=== PATIENT | female | born 1995 | race Caucasian/White ===

== ENCOUNTER 2021-01-03 00:58 | Inpatient (IN) ==
[2021-01-03] MEDS ORDERED: MEPERIDINE 50 MG/1 ML VIAL IV PRN (01:29)
[2021-01-03] MEDS ORDERED: ONDANSETRON 4 MG/2 ML VIAL IV PRN (01:29)
[2021-01-03 02:04] LABS: Basophils % 0.4 % (0.0-0.8); Eosinophils # 0.1 10*3/uL (0.0-0.87); Eosinophils % 0.6 % (0.00-10.9); Hematocrit 30.8 VOL% (35.7-47.0); Hemoglobin 9.8 GM/DL (12.0-16.0); Immature Granulocytes % 1.2 %; Immature Granulocytes Absolute 0.13 #; Lymphocytes # 2.2 10*3/uL (1.4-4.0); Lymphocytes % 20.6 % (21.3-54.2); Mean Corpuscular HGB Conc 31.8 GM/DL (32-36); Mean Corpuscular Volume 80.2 FL (87-102); Mean Platelet Volume 9.9 FL (9.6-12.0); Neutrophils % 69.2 % (38.7-73.9); Platelet Count 324 T/CUMM (130-400); Red Blood Count 3.84 MC/CUMM (3.8-5.5); Red Cell Distribution Width 14.9 % (9.3-17.3); White Blood Count 10.5 T/CUMM (4-12)
[2021-01-03 02:21] LABS: Alanine Aminotransferase < 6 U/L (13-56); Albumin 2.7 G/DL (3.4-5.0); Alkaline Phosphatase 253 U/L (45-117); Aspartate Amino Transferase 14 U/L (0-37); Blood Urea Nitrogen 8 MG/DL (7-18); Calcium 8.7 MG/DL (8.5-10.1); Carbon Dioxide 21 MMOL/L (21-32); Estimated Glom Filtration Rate 129 ML/MIN; Glucose 95 MG/DL (74-106); Osmolality,Calculated 265.2 MOS/KG (273-304); Potassium 3.7 MMOL/L (3.5-5.1); Sodium 134 MMOL/L (136-145); Total Protein 6.8 G/DL (6.4-8.2)
[2021-01-03] MEDS: LACTATED RINGERS 1,000 ML IV PRN ×2 (02:32→05:03)
[2021-01-03] MEDS: OXYTOCIN/LR 20 UNIT/1,000 ML BAG IV SCH ×2 (03:17→15:14)
[2021-01-03] MEDS ORDERED: FAMOTIDINE 20 MG/2 ML VIAL IV ONE (03:24)
[2021-01-03] MEDS ORDERED: PROMETHAZINE 25 MG/1 ML VIAL IM ONE (03:24)
[2021-01-03] MEDS ORDERED: hydrOXYzine HCL 25 MG/1 ML VIAL IM PRN (03:24)
[2021-01-03] MEDS ORDERED: NALOXONE 0.4 MG/ML VIAL IV PRN (03:24)
[2021-01-03] MEDS ORDERED: ONDANSETRON 4 MG/2 ML VIAL IV ONE (03:24)
[2021-01-03] MEDS ORDERED: ePHEDrine 50 MG/ML VIAL IV PRN (03:24)
[2021-01-03] MEDS ORDERED: diphenhydrAMINE 50 MG/1 ML VIAL IV PRN ×2 (03:24)
[2021-01-03] MEDS ORDERED: CITRIC ACID/SODIUM CITRATE 30 ML UDCUP PO ONE (03:24)
[2021-01-03 03:53] LABS: Hypochromasia 1+; Microcytosis 1+; Platelet Estimate Adequate
[2021-01-03] MEDS: fentaNYL 2 MCG/ROPIV 0.2% EPID 100 ML EPIDURAL SCH ×2 (04:15→11:44)
[2021-01-03 05:43] LABS: Bilirubin,Urine Negative (Negative); Blood, Urine Negative (Negative); Glucose,Urine (UA) Negative (Negative); Ketones,Urine 5 mg/dL (Negative); Mucus,Urine Occasional /LPF (Occasional); Nitrite,Urine Negative (Negative); Protein,Urine Negative; Squamous Epithelial Cell,Urine Occasional /HPF (0-10); Urine Appearance CLEAR (Clear); Urine Color Yellow (Yellow); Urine Specific Gravity 1.009 (1.001-1.035); Urine Urobilinogen < 2.0 EU/DL (0.2-1.0)
[2021-01-03] MEDS ORDERED: miSOPROStoL 200 MCG TABLET ONE (09:40)
[2021-01-03] MEDS ORDERED: METHYLERGONOVINE 0.2 MG/1 ML AMP ONE (09:40)
[2021-01-03] MEDS ORDERED: CARBOPROST TROMETHAMINE 250 MCG/ML AMP IM ONE (09:41)
[2021-01-03] MEDS ORDERED: LIDOCAINE 1% 50 ML VIAL ONE (09:42)
[2021-01-03 13:12] LABS: Cord Venous Blood HCO3 20.4 MMOL/L; Cord Venous Blood PCO2 40.9 MMHG; Cord Venous Blood PO2 35.3
[2021-01-03] MEDS ORDERED: RHO(D) IMMUNE GLOBULIN 300 MCG SYRINGE IM ONE (15:22)
[2021-01-03] MEDS ORDERED: oxyCODONE/ACETAMINOPHEN 5-325 MG TABLET PO PRN (15:22)
[2021-01-03] MEDS ORDERED: BENZOCAINE 20%/MENTHOL 0.5% SPRAY 56 GM CAN TOP PRN (15:22)
[2021-01-03] MEDS ORDERED: HYDROCORTISONE 2.5% RECTAL CREAM 30 GM TUBE TOP PRN (15:22)
[2021-01-03] MEDS ORDERED: WITCH HAZEL PADS 100/JAR TOP PRN (15:22)
[2021-01-03] MEDS ORDERED: ACETAMINOPHEN 325 MG TABLET PO PRN (15:22)
[2021-01-03] MEDS ORDERED: BISACODYL 10 MG SUPP RECTAL PRN (15:22)
[2021-01-03] MEDS ORDERED: MEASLES/MUMPS/RUBELLA VACCINE 0.5 ML VIAL SUBCUT ONE (15:22)
[2021-01-03] MEDS ORDERED: OXYTOCIN/LR 20 UNIT/1,000 ML BAG IV ONE (15:22)
[2021-01-03] MEDS ORDERED: LANOLIN 50% CREAM 0.3 OZ TUBE TOP PRN (15:22)
[2021-01-03] MEDS ORDERED: DIPH/TET/ACEL PERT BOOSTER VACCINE 0.5 ML VIAL IM ONE (15:22)
[2021-01-03] MEDS: IBUPROFEN 800 MG TABLET PO PRN (15:55)
[2021-01-03] MEDS: oxyCODONE/ACETAMINOPHEN 5-325 MG TABLET PO PRN (15:57)
[2021-01-03] MEDS: DOCUSATE SODIUM 100 MG CAPSULE PO SCH (21:59)
[2021-01-04] MEDS: IBUPROFEN 800 MG TABLET PO PRN ×3 (03:40→20:22)
[2021-01-04] MEDS: oxyCODONE/ACETAMINOPHEN 5-325 MG TABLET PO PRN ×2 (03:41→22:47)
[2021-01-04 05:20] LABS: Basophils % 0.3 % (0.0-0.8); Eosinophils # 0.1 10*3/uL (0.0-0.87); Eosinophils % 0.4 % (0.00-10.9); Hematocrit 23.1 VOL% (35.7-47.0); Immature Granulocytes % 1.2 %; Immature Granulocytes Absolute 0.18 #; Lymphocytes # 2.3 10*3/uL (1.4-4.0); Lymphocytes % 15.5 % (21.3-54.2); Mean Corpuscular HGB Conc 31.6 GM/DL (32-36); Mean Corpuscular Volume 81.6 FL (87-102); Mean Platelet Volume 10.7 FL (9.6-12.0); Neutrophils % 76.6 % (38.7-73.9)
[2021-01-04 05:21] LABS: Hemoglobin 7.3 GM/DL (12.0-16.0); Platelet Count 244 T/CUMM (130-400); Red Blood Count 2.83 MC/CUMM (3.8-5.5)
[2021-01-04] MEDS ORDERED: SODIUM CHLORIDE 0.9% 1,000 ML IV PRN (08:40)
[2021-01-04] MEDS: DOCUSATE SODIUM 100 MG CAPSULE PO SCH ×2 (09:33→20:23)
[2021-01-04] MEDS: FERROUS SULFATE 325 MG TABLET PO SCH ×3 (09:34→20:23)
[2021-01-04 15:37] LABS: Hematocrit 29.6 VOL% (35.7-47.0); Hemoglobin 9.6 GM/DL (12.0-16.0)
[2021-01-05 05:51] LABS: Basophils % 0.2 % (0.0-0.8); Eosinophils # 0.1 10*3/uL (0.0-0.87); Eosinophils % 0.4 % (0.00-10.9); Hematocrit 28.1 VOL% (35.7-47.0); Hemoglobin 8.8 GM/DL (12.0-16.0); Immature Granulocytes Absolute 0.33 #; Lymphocytes # 2.4 10*3/uL (1.4-4.0); Lymphocytes % 14.4 % (21.3-54.2); Mean Corpuscular HGB Conc 31.3 GM/DL (32-36); Mean Corpuscular Volume 84.1 FL (87-102); Mean Platelet Volume 9.8 FL (9.6-12.0); Monocytes % 7.5 % (1.7-12.7); Neutrophils % 75.5 % (38.7-73.9); Platelet Count 241 T/CUMM (130-400); Red Blood Count 3.34 MC/CUMM (3.8-5.5); Red Cell Distribution Width 15.3 % (9.3-17.3); White Blood Count 16.8 T/CUMM (4-12)
[2021-01-05 08:23] VITALS: BP 99/59
[2021-01-05] MEDS: DOCUSATE SODIUM 100 MG CAPSULE PO SCH (08:53)
[2021-01-05] MEDS: FERROUS SULFATE 325 MG TABLET PO SCH (08:53)
[2021-01-05] MEDS: IBUPROFEN 800 MG TABLET PO PRN (08:54)
== END 2021-01-05 11:35 | disposition home or self-care (01) | DRG 807 ==
LOC: N.LD 00:58 → N.OB 15:27
PROVIDERS: ADMIT Obstetrics & Gynecology; ATTEND Obstetrics & Gynecology

== ENCOUNTER 2022-01-30 14:47 | Inpatient (IN) ==
[2022-01-30] MEDS ORDERED: CARBOPROST TROMETHAMINE 250 MCG/ML AMP IM PRN (15:36)
[2022-01-30] MEDS ORDERED: PROMETHAZINE 25 MG/1 ML VIAL IM ONE (15:36)
[2022-01-30] MEDS ORDERED: NALOXONE 0.4 MG/ML VIAL IV PRN (15:36)
[2022-01-30] MEDS ORDERED: ONDANSETRON 4 MG/2 ML VIAL IV ONE (15:36)
[2022-01-30] MEDS ORDERED: ePHEDrine 50 MG/ML VIAL IV PRN (15:36)
[2022-01-30] MEDS ORDERED: METHYLERGONOVINE 0.2 MG/1 ML AMP IM PRN (15:36)
[2022-01-30] MEDS ORDERED: miSOPROStoL 200 MCG TABLET RECTAL PRN (15:36)
[2022-01-30] MEDS ORDERED: OXYTOCIN/LR 20 UNIT/1,000 ML BAG IV ONE ×2 (15:36→21:49)
[2022-01-30] MEDS ORDERED: diphenhydrAMINE 50 MG/1 ML VIAL IV PRN ×2 (15:36)
[2022-01-30] MEDS ORDERED: TRANEXAMIC ACID 1,000 MG in SODIUM CHLORIDE 0.9% 100 ML IV PRN (15:36)
[2022-01-30] MEDS ORDERED: ONDANSETRON 4 MG/2 ML VIAL IV PRN (15:36)
[2022-01-30] MEDS ORDERED: hydrOXYzine HCL 25 MG/1 ML VIAL IM PRN (15:36)
[2022-01-30] MEDS ORDERED: MEPERIDINE 50 MG/1 ML VIAL IV PRN (15:36)
[2022-01-30] MEDS ORDERED: CITRIC ACID/SODIUM CITRATE 30 ML UDCUP PO ONE (15:36)
[2022-01-30] MEDS ORDERED: LACTATED RINGERS 1,000 ML IV ONE (15:36)
[2022-01-30] MEDS ORDERED: FAMOTIDINE 20 MG TABLET PO ONE (15:36)
[2022-01-30 15:49] LABS: Basophils # 0.1 10*3/uL (0.0-0.2); Basophils % 0.4 % (0.0-0.8); Eosinophils # 0.1 10*3/uL (0.0-0.87); Eosinophils % 0.4 % (0.00-10.9); Hematocrit 30.6 VOL% (35.7-47.0); Hemoglobin 9.1 GM/DL (12.0-16.0); Immature Granulocytes % 0.5 %; Immature Granulocytes Absolute 0.06 #; Lymphocytes # 4.7 10*3/uL (1.4-4.0); Lymphocytes % 41.6 % (21.3-54.2); Mean Corpuscular HGB Conc 29.7 GM/DL (32-36); Mean Corpuscular Volume 74.5 FL (87-102); Mean Platelet Volume 9.6 FL (9.6-12.0); Monocytes # 0.7 10*3/uL (0.11-0.8); Monocytes % 6.2 % (1.7-12.7); Neutrophils % 50.9 % (38.7-73.9); Platelet Count 316 T/CUMM (130-400); Red Blood Count 4.11 MC/CUMM (3.8-5.5); Red Cell Distribution Width 15.5 % (9.3-17.3); White Blood Count 11.2 T/CUMM (4-12)
[2022-01-30] MEDS: LACTATED RINGERS 1,000 ML IV SCH ×2 (15:57→16:11)
[2022-01-30] MEDS ORDERED: fentaNYL 2 MCG/ROPIV 0.2% EPID 100 ML EPIDURAL SCH (16:00)
[2022-01-30] MEDS ORDERED: OXYTOCIN/LR 20 UNIT/1,000 ML BAG IV SCH (16:00)
[2022-01-30] MEDS ORDERED: FAMOTIDINE 20 MG/2 ML VIAL IV ONE ×2 (16:02→16:16)
[2022-01-30 16:11] LABS: Albumin 2.9 G/DL (3.4-5.0); Bilirubin,Total 1.1 MG/DL (0.20-1.00); Potassium 3.9 MMOL/L (3.5-5.1); Total Protein 7.4 G/DL (6.4-8.2)
[2022-01-30] MEDS ORDERED: miSOPROStoL 200 MCG TABLET ONE (17:02)
[2022-01-30] MEDS ORDERED: CARBOPROST TROMETHAMINE 250 MCG/ML AMP IM ONE (17:02)
[2022-01-30] MEDS ORDERED: METHYLERGONOVINE 0.2 MG/1 ML AMP ONE (17:02)
[2022-01-30 18:00] LABS: Cord Arterial Blood HCO3 23.4 MMOL/L
[2022-01-30 18:06] LABS: Cord Venous Blood HCO3 23.4 MMOL/L; Cord Venous Blood PCO2 44.2 MMHG; Cord Venous Blood PO2 26.1
[2022-01-30] MEDS ORDERED: RHO(D) IMMUNE GLOBULIN 300 MCG SYRINGE IM ONE (21:49)
[2022-01-30] MEDS ORDERED: MEASLES/MUMPS/RUBELLA VACCINE 0.5 ML VIAL SUBCUT ONE (21:49)
[2022-01-30] MEDS ORDERED: BISACODYL 10 MG SUPP RECTAL PRN (21:49)
[2022-01-30] MEDS ORDERED: ACETAMINOPHEN 325 MG TABLET PO PRN (21:49)
[2022-01-30] MEDS ORDERED: HYDROCORTISONE 2.5% RECTAL CREAM 30 GM TUBE TOP PRN (21:49)
[2022-01-30] MEDS ORDERED: DIPH/TET/ACEL PERT BOOSTER VACCINE 0.5 ML VIAL IM ONE (21:49)
[2022-01-30] MEDS ORDERED: LANOLIN 50% CREAM 0.3 OZ TUBE TOP PRN (21:49)
[2022-01-30] MEDS ORDERED: BENZOCAINE 20%/MENTHOL 0.5% SPRAY 56 GM CAN TOP PRN (21:49)
[2022-01-30] MEDS ORDERED: oxyCODONE/ACETAMINOPHEN 5-325 MG TABLET PO PRN ×2 (21:49)
[2022-01-30] MEDS ORDERED: WITCH HAZEL PADS 100/JAR TOP PRN (21:49)
[2022-01-30] MEDS: DOCUSATE SODIUM 100 MG CAPSULE PO SCH (22:02)
[2022-01-30] MEDS: IBUPROFEN 800 MG TABLET PO PRN (22:03)
[2022-01-31] MEDS: IBUPROFEN 800 MG TABLET PO PRN ×2 (03:33→15:28)
[2022-01-31 05:58] LABS: Basophils % 0.2 % (0.0-0.8); Eosinophils % 0.3 % (0.00-10.9); Hematocrit 24.6 VOL% (35.7-47.0); Hemoglobin 7.4 GM/DL (12.0-16.0); Immature Granulocytes % 0.8 %; Lymphocytes # 3.3 10*3/uL (1.4-4.0); Mean Corpuscular HGB Conc 30.1 GM/DL (32-36); Mean Corpuscular Volume 73.7 FL (87-102); Mean Platelet Volume 10.1 FL (9.6-12.0); Monocytes # 0.8 10*3/uL (0.11-0.8); Monocytes % 6.4 % (1.7-12.7); Neutrophils % 67.3 % (38.7-73.9); Platelet Count 250 T/CUMM (130-400); Red Blood Count 3.34 MC/CUMM (3.8-5.5); Red Cell Distribution Width 15.6 % (9.3-17.3); White Blood Count 13.1 T/CUMM (4-12)
[2022-01-31] MEDS: FERROUS SULFATE 325 MG TABLET PO SCH ×3 (09:51→20:48)
[2022-01-31] MEDS: DOCUSATE SODIUM 100 MG CAPSULE PO SCH ×2 (09:51→20:48)
[2022-01-31] MEDS ORDERED: SODIUM CHLORIDE 0.9% 1,000 ML IV PRN (09:52)
[2022-01-31 17:06] LABS: Hematocrit 29.4 VOL% (35.7-47.0); Hemoglobin 9.2 GM/DL (12.0-16.0)
[2022-02-01] MEDS: IBUPROFEN 800 MG TABLET PO PRN ×2 (01:10→08:47)
[2022-02-01 06:18] LABS: Hemoglobin 9.7 GM/DL (12.0-16.0)
[2022-02-01 08:45] VITALS: BP 108/61
[2022-02-01] MEDS: FERROUS SULFATE 325 MG TABLET PO SCH (08:46)
[2022-02-01] MEDS: DOCUSATE SODIUM 100 MG CAPSULE PO SCH (08:47)
== END 2022-02-01 11:45 | disposition home or self-care (01) | DRG 807 ==
LOC: N.LDOUT 14:47 → N.LD 14:49 → N.OB 21:49
PROVIDERS: ADMIT Obstetrics & Gynecology; ATTEND Obstetrics & Gynecology